=== PATIENT | male | born 1995 | race Caucasian/White ===

== ENCOUNTER 2024-01-21 20:48 | Emergency (ER) | payer OTHER, SELFPAY ==
[2024-01-21 20:51] VITALS: BP 141/109; PULSE 89; TEMP 36.5; O2SAT 96; BMI 29.3
--- NOTE | 2024-01-21 20:59 | XR_ITS ---
[address] [address] Patient Name: DERIK HOLT MRN: [id number] date: 1995 Sex: M Assigned Patient Location: ER Current Patient Location: ER Accession/Order Number: [id number] Exam Date: 01/21/2024 21:25 Report Date: 01/21/2024 21:41 At the request of: LAURA GALLEGOS Procedure: XR chest 1V EXAM: XR chest 1V CLINICAL INDICATION: Shortness of breath TECHNIQUE: Portable frontal semi-erect view of the chest. COMPARISON: None. FINDINGS: Lines and tubes: None. Lungs: No convincing focal infiltrates. No pleural effusion or pneumothorax. Heart: Cardiac and mediastinal contours are unremarkable. No overt pulmonary vascular congestion. Osseous structures: No acute abnormalities. XR/XR chest 1V IMPRESSION: No acute cardiopulmonary process. Electronically authenticated by: OG DODD Date: 01/21/2024 21:41
--- NOTE | 2024-01-21 20:59 | ECG_ITS ---
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
--- NOTE | 2024-01-21 21:00 | ED.SOB1 ---
Documented by User: MIGUEL Antoine 01/21/24 21:52 HPI - SOB/Dyspnea General Chief Complaint: Shortness of Breath/Dyspnea Stated Complaint: Difficulty Breathing Time Seen by Provider: 01/21/24 20:49 Source: patient Mode of arrival: walk-in Limitations: no limitations History of Present Illness HPI Narrative: Patient is a 28-year-old male with no significant medical history who presents to the emergency department for wheezing and chest tightness. He states several hours ago he smoked a cigarette and had a vape pen. He states since that time he has been coughing, has had tightness in his chest with occasional green sputum and has been coughing and wheezing. He has not had any fevers, vomiting or diarrhea. He has no significant nasal congestion. No sick contacts in the home. He states he feels pressure and tightness in the chest with coughing. No hemoptysis or leg swelling. He states he was feeling well yesterday and this morning. Related Data Previous Rx's ?Medication ?Instructions ?Recorded albuterol sulfate 90 mcg/actuation 2 inh inhalation Q4H PRN shortness 01/21/24 aerosol inhaler of breath or wheezing #8.5 grams srhmvhuwybxnzen-gwddkkztrxnvtya-WC 10 ml PO Q6H PRN cold symptoms 01/21/24 2 mg-30 mg-10 mg/5 mL oral syrup #200 mL (Bromfed DM) prednisone 20 mg tablet See Rx Instructions .Route 01/21/24 .COMPLEX #12 tabs Allergies Allergy/AdvReac Type Severity Reaction Status Date / Time No Known Drug Allergies Allergy Verified 01/21/24 20:55 Review of Systems ROS Constitutional Denies: fever or chills Ears, nose, mouth, and throat Denies: throat pain or nasal congestion Cardiovascular Reports: chest pain Respiratory Reports: shortness of breath, cough, wheezing and change in phlegm color; Denies: coughing up blood Gastrointestinal Denies: nausea or vomiting Musculoskeletal Denies: back pain Integumentary/Breast Denies: rash Neurological Denies: headache Hematologic/Lymphatic Denies: easy bruising or easy bleeding Exam Narrative Exam Narrative: Gen.: Awake, alert, in no distress Head: Normocephalic, atraumatic ENT: Moist mucous membranes Respiratory: No respiratory distress, Inspiratory and expiratory wheezing globally with scattered rhonchi Cardio: Regular rate and rhythm Extremities: Moves extremities equally, no pedal edema Psych: Normal mood and affect Neuro: No focal neuro deficit Skin: Warm, dry, intact Constitutional Vital Signs, click to edit/add: Last Vital Signs Temp 97.7 F 01/21/24 20:51 Pulse 90 01/21/24 21:08 Resp 18 01/21/24 21:08 BP 141/109 H 01/21/24 20:51 Pulse Ox 96 01/21/24 21:08 O2 Del Method Room Air 01/21/24 21:08 Course Vital Signs Vital signs: Vital Signs Temperature 97.7 F 01/21/24 20:51 Pulse Rate 89 01/21/24 20:51 Respiratory Rate 20 01/21/24 20:51 Blood Pressure 141/109 H 01/21/24 20:51 Pulse Oximetry 96 01/21/24 20:51 Oxygen Delivery Method Room Air 01/21/24 20:51 Temperature 97.7 F 01/21/24 20:51 Pulse Rate 90 01/21/24 21:08 Respiratory Rate 18 01/21/24 21:08 Blood Pressure 141/109 H 01/21/24 20:51 Pulse Oximetry 96 01/21/24 21:08 Oxygen Delivery Method Room Air 01/21/24 21:08 MDM - SOB/Dyspnea MDM Narrative Medical decision making narrative: Patient given breathing treatments, Solu-Medrol in the ER. EKG and chest x-ray are unremarkable. Patient will be discharged home with bronchospasm/reactive airway disease instructions. Steroid taper, Bromfed-DM and albuterol inhaler given for home. He declined COVID and influenza testing in the ER. Vital signs are stable. Follow-up PCP and return to the emergency department if symptoms change or worsen Medical Records Attestation: I reviewed the patient's medical records. Imaging Data Chest x-ray: Attestation: I have reviewed the pertinent imaging results. Radiologist's impression: ITS Impressions Chest X-Ray 01/21/24 20:59 IMPRESSION: No acute cardiopulmonary process. Electronically authenticated by: OG DODD Date: 01/21/2024 21:41 ECG Data Attestation: I personally reviewed and interpreted this ECG as follows: (Normal sinus rhythm at a rate of 90, sinus arrhythmia noted with no acute ST elevation or ectopy. Mild artifact noted. EKG reviewed by attending physician) Discharge Plan Discharge Stand Alone Forms: Portal Instructions Chief Complaint: Shortness of Breath/Dyspnea Clinical Impression: Shortness of breath, Reactive airway disease Patient Disposition: Home, Self-Care Time of Disposition Decision: 21:44 Condition: Good Prescriptions / Home Meds: New prednisone 20 mg tablet See Rx Instructions .ROUTE .COMPLEX Qty: 12 0RF Rx Instructions: 3 tabs daily for 2 days, then 2 tabs daily for 2 days, then 1 tab daily for 2 days albuterol sulfate 90 mcg/actuation HFA aerosol inhaler 2 inh inhalation Q4H PRN (Reason: shortness of breath or wheezing) Qty: 8.5 0RF khtnenvuatobzra-zxnpnaarx-YD [Bromfed DM] 2-30-10 mg/5 mL syrup 10 ml PO Q6H PRN (Reason: cold symptoms) Qty: 200 0RF Print Language: Hungarian Instructions: How to Use a Metered-Dose Inhaler (ED), Wheezing (ED) Referrals: Physician,Non-Staff, MD [Primary Care Provider] - 1 week Documented by User: Albaro sU 01/21/24 22:01 HPI - SOB/Dyspnea General Chief Complaint: Shortness of Breath/Dyspnea Stated Complaint: Difficulty Breathing Time Seen by Provider: 01/21/24 20:49 Related Data Previous Rx's ?Medication ?Instructions ?Recorded albuterol sulfate 90 mcg/actuation 2 inh inhalation Q4H PRN shortness 01/21/24 aerosol inhaler of breath or wheezing #8.5 grams vjrkqshtfnbdndq-gdsdhgzgknrgbtn-FU 10 ml PO Q6H PRN cold symptoms 01/21/24 2 mg-30 mg-10 mg/5 mL oral syrup #200 mL (Bromfed DM) prednisone 20 mg tablet See Rx Instructions .Route 01/21/24 .COMPLEX #12 tabs Allergies Allergy/AdvReac Type Severity Reaction Status Date / Time No Known Drug Allergies Allergy Verified 01/21/24 20:55 Exam Constitutional Vital Signs, click to edit/add: Last Vital Signs Temp 97.7 F 01/21/24 20:51 Pulse 90 01/21/24 21:08 Resp 18 01/21/24 21:08 BP 141/109 H 01/21/24 20:51 Pulse Ox 96 01/21/24 21:08 O2 Del Method Room Air 01/21/24 21:08 Course Vital Signs Vital signs: Vital Signs Temperature 97.7 F 01/21/24 20:51 Pulse Rate 89 01/21/24 20:51 Respiratory Rate 20 01/21/24 20:51 Blood Pressure 141/109 H 01/21/24 20:51 Pulse Oximetry 96 01/21/24 20:51 Oxygen Delivery Method Room Air 01/21/24 20:51 Temperature 97.7 F 01/21/24 20:51 Pulse Rate 90 01/21/24 21:08 Respiratory Rate 18 01/21/24 21:08 Blood Pressure 141/109 H 01/21/24 20:51 Pulse Oximetry 96 01/21/24 21:08 Oxygen Delivery Method Room Air 01/21/24 21:08 MDM - SOB/Dyspnea MDM Narrative Medical decision making narrative: Patient given breathing treatments, Solu-Medrol in the ER. EKG and chest x-ray are unremarkable. Patient will be discharged home with bronchospasm/reactive airway disease instructions. Steroid taper, Bromfed-DM and albuterol inhaler given for home. He declined COVID and influenza testing in the ER. Vital signs are stable. Follow-up PCP and return to the emergency department if symptoms change or worsen For this patient encounter I reviewed the mid-level provider?s documentation, medical decision-making and treatment plan, and I personally spent time with this patient. Shared APC visit, physician attestation: [id number]-fbhm: This visit was performed by both a physician and an APC. I personally evaluated and examined the patient. I performed all aspects of MDM as documented. - [place], DO Imaging Data Chest x-ray: Radiologist's impression: ITS Impressions Chest X-Ray 01/21/24 20:59 IMPRESSION: No acute cardiopulmonary process. Electronically authenticated by: OG DODD Date: 01/21/2024 21:41 Discharge Plan Discharge Stand Alone Forms: Portal Instructions Chief Complaint: Shortness of Breath/Dyspnea Clinical Impression: Shortness of breath, Reactive airway disease Patient Disposition: Home, Self-Care Time of Disposition Decision: 21:44 Condition: Good Prescriptions / Home Meds: New prednisone 20 mg tablet See Rx Instructions .ROUTE .COMPLEX Qty: 12 0RF Rx Instructions: 3 tabs daily for 2 days, then 2 tabs daily for 2 days, then 1 tab daily for 2 days albuterol sulfate 90 mcg/actuation HFA aerosol inhaler 2 inh inhalation Q4H PRN (Reason: shortness of breath or wheezing) Qty: 8.5 0RF bepamveskxrthbl-tvlxutsan-[place] [Bromfed DM] 2-30-10 mg/5 mL syrup 10 ml PO Q6H PRN (Reason: cold symptoms) Qty: 200 0RF Print Language: Hungarian Instructions: How to Use a Metered-Dose Inhaler (ED), Wheezing (ED) Referrals: Physician,Non-Staff, MD [Primary Care Provider] - 1 week
[2024-01-21 21:08] VITALS: PULSE 90; O2SAT 96
[2024-01-21] MEDS: ALBUTEROL SULFATE 2.5 MG/3 ML VIAL NEB IH (21:18)
[2024-01-21] MEDS: IPRATROPIUM/ALBUTEROL SULFATE 3 ML AMPUL.NEB IH (21:18)
[2024-01-21] MEDS: METHYLPREDNISOLONE SOD SUCC PF 125 MG/2 ML VIAL IM (21:22)
[2024-01-21] MEDS: ALBUTEROL SULFATE 200 PUFF/6.7 GM INHALER IH (21:57)
[2024-01-21] MEDS: HYDROCODONE BIT/HOMATROP 5 MG/1.5 MG TABLET 1 TAB PO (21:57)
[2024-01-21 21:59] VITALS: BP 138/88; PULSE 100; O2SAT 99
== END 2024-01-21 21:59 | disposition home or self-care (01) ==
PROVIDERS: Emergency Provider Emergency Medicine
DX: J45.909 Unspecified asthma, uncomplicated (principal); R06.02 Shortness of breath; F17.210 Nicotine dependence, cigarettes, uncomplicated; F17.290 Nicotine dependence, other tobacco product, uncomplicated
CPT/HCPCS: 71045; 93005; 94640; 96372; 99285; J2919

== ENCOUNTER 2024-01-31 05:00 | Emergency (ER) | payer OTHER, SELFPAY ==
[2024-01-31] VITALS (7 sets, daily range): BP systolic 124–136; BP diastolic 85–92; PULSE 74–88; O2SAT 94–98
--- NOTE | 2024-01-31 05:25 | XR_ITS ---
The [address] [address] Patient Name: DERIK HOLT MRN: [id number] date: 1995 Sex: M Assigned Patient Location: ER Current Patient Location: ED.MAIN Accession/Order Number: [id number] Exam Date: 01/31/2024 05:28 Report Date: 01/31/2024 06:01 At the request of: JAY LUNA Procedure: XR chest 1V EXAM: XR chest 1V HISTORY: SOB COMPARISON: Chest x-ray, 01/21/2024. TECHNIQUE: AP upright portable chest x-ray. FINDINGS: Cardiac size, mediastinal contour and pulmonary vascularity are within normal limits. The lungs and pleural spaces appear clear. The bony thorax is intact. XR/XR chest 1V IMPRESSION: Nonacute chest. Electronically authenticated by: MAURIZIO DE OLIVEIRA Date: 01/31/2024 06:01
[2024-01-31 05:53] LABS: Adenovirus NOT DETECTED (NOT DETECTE); Bordetella parapertussis NOT DETECTED (NOT DETECTE); Coronavirus 229E NOT DETECTED (NOT DETECTE); Coronavirus HKU1 NOT DETECTED (NOT DETECTE); Coronavirus NL63 NOT DETECTED (NOT DETECTE); Coronavirus OC43 NOT DETECTED (NOT DETECTE); Human Metapneumovirus NOT DETECTED (NOT DETECTE); Human Rhinovirus/Enterovirus NOT DETECTED (NOT DETECTE); Influenza A NOT DETECTED (NOT DETECTE); Influenza B NOT DETECTED (NOT DETECTE); Mycoplasma pneumoniae NOT DETECTED (NOT DETECTE); Parainfluenza Virus 1 NOT DETECTED (NOT DETECTE); Parainfluenza Virus 2 NOT DETECTED (NOT DETECTE); Parainfluenza Virus 3 NOT DETECTED (NOT DETECTE); Parainfluenza Virus 4 NOT DETECTED (NOT DETECTE); Respiratory Syncytial Virus NOT DETECTED (NOT DETECTE); SARS-CoV-2 NOT DETECTED (NOT DETECTE)
--- NOTE | 2024-01-31 05:53 | ED_ITS ---
HPI - SOB/Dyspnea General Chief Complaint: Shortness of Breath/Dyspnea Stated Complaint: sob Time Seen by Provider: 01/31/24 05:50 History of Present Illness HPI Narrative: past history of asthma. States he felt short of breath last PM but was able to fall asleep. Woke up within a couple of hours more short of breath. No chest pain or fever. No nausea Related Data Previous Rx's ?Medication ?Instructions ?Recorded albuterol sulfate 90 mcg/actuation 2 inh inhalation Q4H PRN shortness 01/21/24 aerosol inhaler of breath or wheezing #8.5 grams jkvndwdogqxrgbu-wluowchwgobxiyt-ZY 10 ml PO Q6H PRN cold symptoms 01/21/24 2 mg-30 mg-10 mg/5 mL oral syrup #200 mL (Bromfed DM) prednisone 20 mg tablet See Rx Instructions .Route 01/21/24 .COMPLEX #12 tabs Allergies Allergy/AdvReac Type Severity Reaction Status Date / Time No Known Drug Allergies Allergy Verified 01/21/24 20:55 Review of Systems ROS Status of ROS 10 or more systems reviewed and unremark able except as noted in history and below Exam Constitutional Vital Signs, click to edit/add: Last Vital Signs Pulse 88 01/31/24 06:04 Resp 16 01/31/24 06:04 Pulse Ox 95 01/31/24 06:04 O2 Del Method Nasal Cannula 01/31/24 06:04 O2 Flow Rate 2 01/31/24 06:04 Common normals: average body habitus, oriented x3, no limitations, healthy appearing, alert and well nourished General appearance: in distress moderate HENMT Common normals: normocephalic and head/scalp atraumatic Eye Common normals: PERRL, EOMs intact bilaterally and conjunctivae normal Respiratory Effort & inspection: tachypneic, respiratory distress and audible wheezes Cardio Rate: tachycardic GI Common normals: Normal to inspection, nondistended, normoactive bowel sounds present, soft to palpation and non-tender Extremity Common normals: normal to inspection Neuro Common normals: oriented x3, CN's II-XII intact bilaterally, moves all extremities and no focal motor deficits Psych Appearance: grossly normal Course Vital Signs Vital signs: Vital Signs Respiratory Rate 22 H 01/31/24 05:00 Pulse Oximetry 98 01/31/24 05:00 Oxygen Delivery Method Nasal Cannula 01/31/24 05:00 Oxygen Delivery Flow Rate 2 01/31/24 05:00 Pulse Rate 88 01/31/24 06:04 Respiratory Rate 16 01/31/24 06:04 Pulse Oximetry 95 01/31/24 06:04 Oxygen Delivery Method Nasal Cannula 01/31/24 06:04 Oxygen Delivery Flow Rate 2 01/31/24 06:04 MDM - SOB/Dyspnea MDM Narrative Medical decision making narrative: patient presents with acute asthma flare exacerbation. Past history of same. Given dose of solumedrol IVP and abuterol NMT x2. Cxray without obvious infiltrate . Patient has diffuse wheezing that improved some after the intervention . Improved enough wherein he stated he felt better. On re examination he continued to have inspiratory and expiratory wheezeing but some improvement in air movement. Discussed option of hospitalization but he is refusing at this time. 3rd albuterol NMT ordered patient re examined and is feeling better. Appears more relaxed and no longer working to breathe. Still has diffuse exp wheeze. Will transfer care to oncoming physician as patient is still refusing admission Lab Data Labs: Lab Results 01/31/24 Range/Units 05:15 WBC 9.6 (4.0-11.0) 10^3/uL RBC 4.94 (4.70-6.10) 10^6/uL Hgb 16.0 (14.0-18.0) g/dL Hct 46.3 (42.0-54.0) % MCV 93.7 (80.0-94.0) fL MCH 32.4 (25.9-34.0) pg MCHC 34.6 (29.9-35.2) g/dL RDW 12.3 (11.0-15.0) % Plt Count 237 (150-450) 10^3/uL MPV 11.2 (9.5-13.5) fL Neut % (Auto) 44.5 (43.0-75.0) % Lymph % (Auto) 36.0 (20.5-60.0) % [place] % (Auto) 8.3 (1.7-12.0) % Eos % (Auto) 10.0 H (0.9-7.0) % Baso % (Auto) 0.6 (0.2-2.0) % Neut # (Auto) 4.3 (1.4-6.5) 10^3/uL Lymph # (Auto) 3.4 (1.2-3.8) 10^3/uL [place] # (Auto) 0.8 (0.3-0.8) 10^3/uL Eos # (Auto) 1.0 H (0.0-0.7) 10^3/uL Baso # (Auto) 0.1 (0.0-0.1) 10^3/uL Abs Immat Gran (auto) 0.06 H (0.00-0.03) 10^3/uL Imm/Tot Granulo (auto) 0.6 H (0.0-0.5) % Sodium 144 (136-145) mmol/L Potassium 3.9 (3.5-5.1) mmol/L Chloride 106 (98-107) mmol/L Carbon Dioxide 29.1 (21.0-32.0) mmol/L Anion Gap 12.8 BUN 18.0 (7.0-18.0) mg/dL Creatinine 1.09 (0.70-1.30) mg/dL Est GFR ( Amer) >60 (>=60) Est GFR (Non-Af Amer) >60 (>=60) BUN/Creatinine Ratio 16.5 Glucose 95 (74-106) mg/dL Calcium 8.9 (8.5-10.1) mg/dL Adenovirus (PCR) Not detected (NOT DETECTE) C. pneumoniae DNA (PCR) Not detected (NOT DETECTE) Coronavirus Type OC43 Not detected (NOT DETECTE) Coronavirus Type HKU1 Not detected (NOT DETECTE) Coronavirus Type 229E Not detected (NOT DETECTE) Coronavirus Type NL63 Not detected (NOT DETECTE) Human Metapneumovir PCR Not detected (NOT DETECTE) M. pneumoniae (PCR) Not detected (NOT DETECTE) Parainfluenza PCR Not detected (NOT DETECTE) Parainfluenza 2 (PCR) Not detected (NOT DETECTE) Parainfluenza 3 (PCR) Not detected (NOT DETECTE) Parainfluenza 4 (PCR) Not detected (NOT DETECTE) RSV (RT-PCR) Not detected (NOT DETECTE) Entero/Rhino (PCR) Not detected (NOT DETECTE) SARS-CoV-2 (PCR) Not detected (NOT DETECTE) Bordetella pertussis (PCR) Not detected (NOT DETECTE) B parapertussis DNA PCR Not detected (NOT DETECTE) Influenza Type A (PCR) Not detected (NOT DETECTE) Influenza Type B (PCR) Not detected (NOT DETECTE) Discharge Plan Discharge Patient Disposition: Still a Patient
[2024-01-31 05:59] LABS: Hematocrit 46.3 % (42.0-54.0); Mean Corpuscular Volume 93.7 fL (80.0-94.0); Red Blood Count 4.94 10^6/uL (4.70-6.10); White Blood Count 9.6 10^3/uL (4.0-11.0)
[2024-01-31 06:00] LABS: Basophils Percent Auto 0.6 % (0.2-2.0); Immature Granulocytes Pct Auto 0.6 % (0.0-0.5); Mean Corpuscular HGB Conc 34.6 g/dL (29.9-35.2); Mean Corpuscular Hemoglobin 32.4 pg (25.9-34.0); Mean Platelet Volume 11.2 fL (9.5-13.5); Monocytes Percent Auto 8.3 % (1.7-12.0); Neutrophils Percent Auto 44.5 % (43.0-75.0); Platelet Count 237 10^3/uL (150-450); Red Cell Distribution Width 12.3 % (11.0-15.0)
--- NOTE | 2024-01-31 06:00 | PC.NURSE ---
SEE PAPER CHARTING
[2024-01-31 06:01] LABS: Lymphocytes Absolute Auto 3.4 10^3/uL (1.2-3.8); Monocytes Absolute Auto 0.8 10^3/uL (0.3-0.8); Neutrophils Absolute Auto 4.3 10^3/uL (1.4-6.5)
[2024-01-31 06:02] LABS: Anion Gap 12.8; Basophils Absolute Auto 0.1 10^3/uL (0.0-0.1); Carbon Dioxide 29.1 mmol/L (21.0-32.0); Chloride 106 mmol/L (98-107); Glucose 95 mg/dL (74-106); Immature Granulocytes Abs Auto 0.06 10^3/uL (0.00-0.03); Potassium 3.9 mmol/L (3.5-5.1); Sodium 144 mmol/L (136-145)
[2024-01-31 06:03] LABS: BUN Creatinine Ratio 16.5; Calcium 8.9 mg/dL (8.5-10.1); Estimated GFR (African America >60 (>=60); Estimated GFR (Non-African Ame >60 (>=60)
[2024-01-31] MEDS: ALBUTEROL SULFATE 2.5 MG/3 ML VIAL NEB IH (06:04)
== END 2024-01-31 07:47 | disposition left against medical advice (07) ==
PROVIDERS: Emergency Provider Internal Medicine
DX: R06.02 Shortness of breath (principal); J45.901 Unspecified asthma with (acute) exacerbation; Z53.29 Procedure and treatment not carried out because of patient's decision for other reasons; Z20.822 Contact with and (suspected) exposure to COVID-19
CPT/HCPCS: 0202U; 36415; 71045; 80048; 85025; 94640; 96374; 99284

== ENCOUNTER 2025-01-04 13:05 | Emergency (ER) | payer OTHER, SELFPAY ==
[2025-01-04 13:14] VITALS: BP 130/84; PULSE 81; TEMP 36.8; O2SAT 98; BMI 25.1
--- NOTE | 2025-01-04 13:32 | ED_ITS ---
HPI - Extremity Problem General Chief complaint: Extremity Problem, Nontraumatic Stated complaint: LOWER EXTREMITY NUMB TOES Time Seen by Provider: 01/04/25 13:08 Source: patient Mode of arrival: walk-in Limitations: no limitations History of Present Illness HPI Narrative: Patient is a 29-year-old male who was referred to the emergency department by the outpatient [place] clinic in [place] for discoloration and numbness to the bilateral toes. 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 His significant other states today his toes were black which was the worst she had seen them so they called the [facility] and they were referred to the emergency department. This has been ongoing for 2 years. Patient states that this time his toes are his normal color. He states sometimes the toes are hypersensitive and sometimes they are numb. He denies any swelling or discoloration to the calves or lower legs. He has no back pain. No hip or abdominal pain. Related Data Previous Rx's ?Medication ?Instructions ?Recorded albuterol sulfate 90 mcg/actuation 2 inh inhalation Q4H PRN shortness 01/21/24 aerosol inhaler of breath or wheezing #8.5 grams glcaeoulvopmhpz-pgdalzbstcojenj-OX 10 ml PO Q6H PRN cold symptoms 01/21/24 2 mg-30 mg-10 mg/5 mL oral syrup #200 mL (Bromfed DM) prednisone 20 mg tablet See Rx Instructions .Route 01/21/24 .COMPLEX #12 tabs fluticasone 250 mcg-salmeterol 50 1 inh inhalation BID #60 ea 01/31/24 mcg/dose blistr powdr for inhalation (Advair Diskus) prednisone 20 mg tablet 40 mg (2 x 20 mg) PO DAILY 5 days 01/31/24 #10 tabs ketorolac 10 mg tablet 10 mg PO TID PRN pain #10 tabs 01/04/25 Allergies Allergy/AdvReac Type Severity Reaction Status Date / Time No Known Drug Allergies Allergy Verified 01/21/24 20:55 Review of Systems ROS Constitutional Denies: fever or chills Ears, nose, mouth, and throat Denies: throat pain or nasal congestion Cardiovascular Denies: chest pain Respiratory Denies: shortness of breath or cough Gastrointestinal Denies: nausea or vomiting Musculoskeletal Reports: extremity pain; Denies: back pain or neck pain Integumentary/Breast Denies: rash Neurological Reports: numbness in extremities; Denies: weakness in extremities Endocrine Denies: excessive urination Hematologic/Lymphatic Denies: easy bruising or easy bleeding [facility] Social History Little interest or pleasure in doing things: not at all Feeling down, depressed, or hopeless: not at all Exam Narrative Exam Narrative: Gen.: Awake, alert, in no distress Head: Normocephalic, atraumatic ENT: Moist mucous membranes Respiratory: No respiratory distress Extremities: Bilateral feet with symmetrically colored toes, bilateral toes of the feet are slightly darker than the skin of the dorsum of the foot. 2+ DP pulses bilaterally. Bilateral calves are soft, warm and nontender. No swelling or discoloration noted of the legs. Psych: Normal mood and affect Neuro: No focal neuro deficit Skin: Warm, dry, intact Constitutional Vital Signs, click to edit/add: Last Vital Signs Temp 98.2 F 01/04/25 13:14 Pulse 80 01/04/25 15:05 Resp 18 01/04/25 15:05 BP 129/69 01/04/25 15:05 Pulse Ox 98 01/04/25 15:05 O2 Del Method Room Air 01/04/25 13:14 Course Vital Signs Vital signs: Vital Signs Temperature 98.2 F 01/04/25 13:14 Pulse Rate 81 01/04/25 13:14 Respiratory Rate 18 01/04/25 13:14 Blood Pressure 130/84 01/04/25 13:14 Pulse Oximetry 98 01/04/25 13:14 Oxygen Delivery Method Room Air 01/04/25 13:14 Temperature 98.2 F 01/04/25 13:14 Pulse Rate 80 01/04/25 15:05 Respiratory Rate 18 01/04/25 15:05 Blood Pressure 129/69 01/04/25 15:05 Pulse Oximetry 98 01/04/25 15:05 Oxygen Delivery Method Room Air 01/04/25 13:14 MDM - Extremity (Nontraumatic) MDM Narrative Medical decision making narrative: Patient with a benign exam, palpable pulses in the feet. He has no complaints of pain in the ER. He states his toes are normal at this time. CT of the lumbar spine, CT of the pelvis with no evidence of acute process and ultrasound of the bilateral lower extremities arterial was performed with no evidence of acute process as well. Patient will be discharged home with NSAIDs and referred to vascular surgery as needed and return to the ER if symptoms change or worsen. SUPERVISED APC VISIT, PHYSICIAN ATTESTATION: Based on the medical record the care appears appropriate. ? Medical Records Attestation: I reviewed the patient's medical records. Imaging Data CT lumbar spine, pelvis: Attestation: I have reviewed the pertinent imaging results. Discharge Plan Discharge Chief Complaint: Extremity Problem, Nontraumatic Clinical Impression: Paresthesia of both feet Patient Disposition: Home, Self-Care Time of Disposition Decision: 15:26 Condition: Good Prescriptions / Home Meds: New ketorolac 10 mg tablet 10 mg PO TID PRN (Reason: pain) Qty: 10 0RF No Action prednisone 20 mg tablet See Rx Instructions .ROUTE .COMPLEX Qty: 12 0RF Rx Instructions: 3 tabs daily for 2 days, then 2 tabs daily for 2 days, then 1 tab daily for 2 days albuterol sulfate 90 mcg/actuation HFA aerosol inhaler 2 inh inhalation Q4H PRN (Reason: shortness of breath or wheezing) Qty: 8.5 0RF fuiesvwjqsipxim-iorsnqjlw-IH [Bromfed DM] 2-30-10 mg/5 mL syrup 10 ml PO Q6H PRN (Reason: cold symptoms) Qty: 200 0RF prednisone 20 mg tablet 40 mg PO DAILY 5 Days Qty: 10 0RF fluticasone propion-salmeterol [Advair Diskus] 250-50 mcg/dose blister with device 1 inh inhalation BID Qty: 60 0RF Print Language: [place] Leonean Instructions: Paresthesia (ED) Referrals: Marvin Vigil MD [Physician] - As soon as possible Eduardo Driscoll DO [Primary Care Provider] - 1 week
[2025-01-04 15:05] VITALS: BP 129/69; PULSE 80; O2SAT 98
== END 2025-01-04 15:30 | disposition home or self-care (01) ==
PROVIDERS: Emergency Provider Emergency Medicine; PCP Family Medicine
DX: R20.2 Paresthesia of skin (principal)
CPT/HCPCS: 72131; 72192; 93925; 99284